=== PATIENT | female | born 1995 | race Asian ===

== ENCOUNTER 2019-08-17 07:25 | Inpatient (IN) | payer OTHER, SELFPAY ==
[2019-08-17] VITALS (55 sets, daily range): BP systolic 83–133; BP diastolic 46–117; PULSE 55–104; RESP 16–17; TEMP 36.6–37.5; O2SAT 80–100
[2019-08-17 08:37] LABS: Basophils Percent Auto 0.2 % (0.2-1.2); Eosinophils Absolute Auto 0.2 K/mm3 (0-0.3); Eosinophils Percent Auto 1.3 % (0-4.4); Hematocrit 35.5 % (37.0-47.0); Immature Granulocyte Absolute 0.15 K/mm3 (0.00-0.031); Lymphocytes Absolute Auto 2.58 K/mm3 (0.9-3.2); Mean Corpuscular Hemoglobin 26.2 pg (26-34); Mean Corpuscular Volume 84.5 fl (80-100); Mean Platelet Volume 9.9 fl (7.4-10.4); Monocytes Absolute Auto 1.2 K/mm3 (0.1-0.6); Monocytes Percent Auto 7.7 % (2.6-8.5); Neutrophils Percent Auto 72.8 % (45.5-73.1); Platelet Count Result 243 k/mm3 (150-375); Red Cell Distribution Width 13.9 % (11.5-14.5); White Blood Count 15.2 K/mm3 (4.5-10.0)
[2019-08-17] MEDS: LACTATED RINGERS 1,000 ML 125 ML IV CONT (09:28)
--- NOTE | 2019-08-17 11:11 | PM.OBPRVD ---
OB - Delivery Note Procedure Delivery date: 08/17/19 Route of delivery: Episiotomy description: None Laceration description: None Specimen: No Estimated blood loss (mL): 100 Anesthesia type: Epidural Disposition: floor Narrative: Patient prepped and draped in usual sterile manner for this procedure. Maternal expulsive efforts readily delivered vertex with suctioning of the nasal and oropharynx. With further pushing the rest of baby was readily delivered without difficulty. Cord was clamped and cut and placenta then delivered spontaneously. Cervix vagina and vulva were inspected no lacerations or tears. Immediate postop condition mother and baby were both excellent. Baby Weeks of gestation at delivery: 39 gender: Female Weight (pounds): 6 Weight (ounces): 13 presentation: vertex score one minute: 9 score five minutes: 9
--- NOTE | 2019-08-17 11:13 | P.PCNOB_ITS ---
OB - Delivery Note Procedure Laceration description: None Estimated blood loss (mL): 100 Anesthesia type: Epidural [place] Baby Weeks of gestation at delivery: 39 Infant gender: Female Weight (pounds): 6 Weight (ounces): 13 presentation: vertex score one minute: 9 score five minutes: 9
[2019-08-17] MEDS: OXYTOCIN 30 UNITS/NS 500 ML 30 UNITS/500 ML BAG 125 UNITS IV CONT (11:40)
--- NOTE | 2019-08-17 16:10 | PC.NURSE ---
Patient transferred to post room #283 via wheelchair. Support person present. Oriented to unit, room, information board, rooming in, admission packet and security measures. Patient verbalizes understanding.
--- NOTE | 2019-08-17 17:15 | LDADM ---
This patient, Diane Ibarra, was admitted to OB 2nd Floor Room 283 on 08/17/19 at 07:25. Plans for labor, pain management and were discussed with patient. Patient/family oriented to hospital policies and general routines including ID bracelet, bed and alarms, visiting hours, pain management, procedures, bathroom and other care routines, personal items, smoking policy, room service/diet and guest tray routines, infant security routines, and visiting hours. Patient/Family are encouraged to report perceived risks to care and to ask questions if they do not understand what they are told or what they should do. See OBIX for further documentation.
[2019-08-17] MEDS: IBUPROFEN 600 MG TABLET PO (19:05)
[2019-08-18 05:34] LABS: Hematocrit 33.2 % (37.0-47.0); Hemoglobin 10.1 g/dL (12.0-15.0)
--- NOTE | 2019-08-18 07:41 | P.DS_ITS ---
OB - DS: Summary OB Procedures : None OB Procedures Intrapartum: Spontaneous Vag Delivery OB Procedures: : None Time Spent with Patient Time attestation: Total time spent providing and/or coordinating discharge services: DS: Data Data Completed and Pending Labs on day of discharge: Labs from last 24 hours 08/18/19 08/17/19 08/17/19 04:58 08:31 08:31 WBC RBC Hgb 10.1 L Hct 33.2 L MCV MCH MCHC RDW Plt Count MPV Immature Gran % (Auto) Neut % (Auto) Lymph % (Auto) [place] % (Auto) Eos % (Auto) Baso % (Auto) Lymph # (Auto) [place] # (Auto) Eos # (Auto) Baso # (Auto) Abs Immat Gran (auto) Absolute Neuts (auto) Absolute Nucleated RBC Nucleated RBC % RPR Pending Blood Type O Positive Antibody Screen Negative 08/17/19 08:31 WBC 15.2 H RBC 4.20 Hgb 11.0 L Hct 35.5 L MCV 84.5 MCH 26.2 MCHC 31.0 L RDW 13.9 Plt Count 243 MPV 9.9 Immature Gran % (Auto) 1.0 H Neut % (Auto) 72.8 Lymph % (Auto) 17.[address] [place] % (Auto) 7.7 Eos % (Auto) 1.3 Baso % (Auto) 0.2 Lymph # (Auto) 2.58 [place] # (Auto) 1.2 H Eos # (Auto) 0.2 Baso # (Auto) 0.0 Abs Immat Gran (auto) 0.15 H Absolute Neuts (auto) 11.0 H Absolute Nucleated RBC 0.0 Nucleated RBC % 0.0 RPR Blood Type Antibody Screen Discharge Plan Discharge Discharging Clinician: Tyson Lopez Patient Disposition: Home, Self-Care Activity: as tolerated Diet: as tolerated Patient Instructions: Antibiotic Form Stand Alone Forms: General Discharge Information Follow-up/Referrals: Tyson Lopez MD [Physician] - 3 Weeks Discharge Medications: New hydrocodone-acetaminophen 5-325 mg Tablet 1 tab PO Q3H PRN (Reason: Moderate Pain (4-6)) Qty: 12 RF: 0 ibuprofen 600 mg Tablet 600 mg PO Q6H PRN (Reason: Cramping) Qty: 30 RF: 0 No Action PNV cmb#95-ferrous fumarate-FA [] 28 mg iron- 800 mcg Tablet 1 tablet PO DAILY RF: 0 Date of admission: 08/17/19 07:25 Primary Care Provider: KarenLucie Admitting Provider: Tyson Lopez Attending physician on admission: Tyson Lopez
[2019-08-18] MEDS: TETANUS,DIPHTHERIA,AC PERTUSSIS ADULT (0.5 ML) BOOSTRIX IM (08:11)
[2019-08-18] MEDS: MULTIVIT/MIN/PREN/FOL AC/IRON TABLET 1 TAB PO (08:11)
[2019-08-18] MEDS: IBUPROFEN 600 MG TABLET PO (08:18)
[2019-08-18 08:20] VITALS: BP 115/72; PULSE 77; RESP 16; TEMP 37; O2SAT 100
--- NOTE | 2019-08-18 11:05 | PC.NURSE ---
Consulted with patient, mother reports pain with feeding. Both nipples are reddened from incorrect latch. Nipple care reviewed. Reviewed feeding cues, frequencies, duration of feedings, feeding elimination flow sheet, and signs of adequate intake. Demonstrated stimulation techniques to wake infant for feeding. Assisted with to breast. Reviewed positioning/alignment in cross cradle, holding breast in U hold and guided asymmetrical latch on. Discussed rational for each. Infant was able to latch correctly. Mother quickly reports she can feel is latched more deeply than previous feedings. Infant nursed eagerly, with steady draws and frequent swallowing noted. Reviewed signs of a correct latch, effective nursing and suck swallow ratio. Infant was able to maintain latch without discomfort to mother. Suggested mother stimulate infant to keep awake and nursing effectively for increased intake and assist with maintaining deep latch. Demonstrated how to adjust latch more deeply while feeding. Instructed mother to call out for RN assistance if she is unable to latch for feeding or she has discomfort with nursing. Instructed feeding should be initiated three hours from start of last feeding or if feeding cues are noted before. Mother voiced understanding of information shared.
[2019-08-18 13:36] LABS: Rapid Plasma Reagin Non-Reactive (NonReactive)
--- NOTE | 2019-08-18 14:49 | WPDANLDPN2 ---
Anes-Prog Note L&D Date/Time: 08/18/19 14:49 Comfortable throughout: labor Neuraxial method: epidural Epidural/Spinal procedure site: clean & non-tender Neuro status: Neuro function grossly intact. Cardiovascular status: normal Respiratory status: normal Airway patency: baseline Mental status: baseline Post-Op hydration status: normal Vital Signs: Last Vital Signs Temp 37.0 C 08/18/19 08:20 Pulse 77 08/18/19 08:20 Resp 16 08/18/19 08:20 BP 115/72 08/18/19 08:20 Pulse Ox 100 08/18/19 08:20 I/O: Intake & Output 08/17/19 08/18/19 08/18/19 23:59 07:59 15:59 Output Total 100 Balance -100 Post-procedural complaints: none Patient feedback: Patient satisfied with anesthetic care.
[2019-08-18 21:30] VITALS: BP 107/65; PULSE 80; RESP 17; TEMP 37.1
[2019-08-19 09:25] VITALS: BP 117/74; PULSE 74; RESP 16; TEMP 36.2; O2SAT 99
[2019-08-19] MEDS: MULTIVIT/MIN/PREN/FOL AC/IRON TABLET 1 TAB PO (09:25)
[2019-08-19] MEDS: IBUPROFEN 600 MG TABLET PO (09:25)
[2019-08-19] MEDS: DOCUSATE SODIUM 100 MG CAPSULE PO (09:25)
[2019-08-21 07:56] VITALS: BP 129/63; PULSE 67; RESP 20; TEMP 37.1; O2SAT 98
--- NOTE | 2019-08-22 11:56 | PM.OBDSVD ---
OB - DS: Summary OB Procedures : None OB Procedures Intrapartum: Spontaneous Vag Delivery OB Procedures: : None Time Spent with Patient Time attestation: Total time spent providing and/or coordinating discharge services: Discharge Plan Discharge Discharging Clinician: Tyson Lopez Patient Disposition: Home, Self-Care Activity: as tolerated Diet: as tolerated Discharge Instructions: Education: Mom and Baby Guide Given to: Patient Follow-Up: Call your delivering provider's office for an appointment to be seen in: 3 weeks Mom and baby should come to the [facility] for the follow-up appointment. Appointment Date/Time: Wednesday08/21/2019 at 8:00 am Call [phone] if you are unable to keep your appointment time. BREAST CARE: 1. Wear a snug supportive bra. 2. For engorgement discomfort: Breast Feeding: A. Apply warm moist washcloths B. Express milk as needed to relieve engorgement C. Wear loose clothing 3. For sore nipples: A. Identify correct latch-on B. Apply warm moist washcloths before and after nursing C. Air dry nipples after nursing D. May apply Lansinoh cream to nipples EPISIOTOMY/PERINEAL CARE: 1. Until bleeding stops, use your robinson bottle after urinating 2. Change your pad frequently throughout the day 3. You may take sitz baths several times a day (run warm water in your bathtub for 20 minutes.) Do NOT bathe in the water 4. No tub baths until seen by your physician - You may shower ACTIVITY: 1. Rest as much as possible. 2. Do not exercise or lift anything heavier than your baby (such as laundry or other children.) 3. Avoid stairs or driving as much as possible. 4. Do not put anything into the vagina. No douching, tampons, or sexual activity until seen by physician. NOTIFY PHYSICIAN IF YOU HAVE ANY QUESTIONS OR IF ANY OF THE FOLLOWING SYMPTOMS OCCUR: 1. If your episiotomy or incision becomes red, swollen, or more painful than what you have experienced in the hospital. 2. If your vaginal bleeding becomes foul smelling. 3. If your vaginal bleeding becomes more heavy than a period or if your bleeding changes from pink to bright red. However, you may pass an occasional walnut-sized clot once or twice for the first week . 4. If you experience a sharp, shooting pain in you calves. 5. If you discover a hard, reddened area on your breast or if you experience flu-like symptoms. DIET: 1. Eat regular, well-balanced meals. 2. Drink plenty of fluids daily. If , drink to thirst. Follow-up/Referrals: Tyson Lopez MD [Physician] - 3 Weeks Discharge Medications: New hydrocodone-acetaminophen 5-325 mg Tablet 1 tab PO Q3H PRN (Reason: Moderate Pain (4-6)) Qty: 12 RF: 0 ibuprofen 600 mg Tablet 600 mg PO Q6H PRN (Reason: Cramping) Qty: 30 RF: 0 Continued PNV cmb#95-ferrous fumarate-FA [] 28 mg iron- 800 mcg Tablet 1 tablet PO DAILY RF: 0 Date of admission: 08/17/19 07:25 Primary Care Provider: StephanieLucie Admitting Provider: Tyson Lopez Discharge Date/Time: 08/19/19 12:31 Attending physician on admission: Tyson Lopez
== END 2019-08-19 12:31 | disposition home or self-care (01) | DRG 560 ==
LOC: ANHLDR 08:26 → ANHOB2 14:58
PROVIDERS: Admitting Provider Obstetrics & Gynecology; PCP Physician Assistant; Visit Provider Obstetrics & Gynecology
DX: O80 Encounter for full-term uncomplicated delivery (principal); Z37.0 Single live birth; Z3A.39 39 weeks gestation of pregnancy
CPT/HCPCS: 36415; 85014; 85018; 85025; 86592; 86850; 86900; 86901; 90715; A9270; J2590; J2795; J7120

== ENCOUNTER 2019-12-27 15:44 | Emergency (ER) | payer OTHER, SELFPAY ==
--- NOTE | ~2019-12-27 | XR_ITS ---
EXAMINATION: XR ankle LT min 3V DATE: 12/27/2019 16:06 INDICATION: Left ankle injury. TECHNIQUE: 4 views of left ankle were obtained. COMPARISON: None. FINDINGS: Bone alignment is normal. No fracture. Joint spaces are well maintained. There is lateral a nkle soft tissue swelling. IMPRESSION: 1. No fracture. Reviewed, dictated and finalized at location B. IMPRESSION: 1. No fracture.
[2019-12-27 15:56] VITALS: BP 127/84; PULSE 77; RESP 16; TEMP 36.6; O2SAT 100
--- NOTE | 2019-12-27 16:13 | ED.LOWEXIN ---
HPI - Extremity Injury (Lower) General Chief Complaint: Extremity Injury, Lower Stated Complaint: L/ankle pain Time Seen by Provider: 12/27/19 16:08 Source: patient and RN notes reviewed Mode of arrival: ambulatory Limitations: no limitations History of Present Illness HPI Narrative: Patient presents today complaining of an injury to her left ankle. States she had her baby on her lap for approximately 30 minutes. When she went to stand up her foot was asleep. She stopped it to wake it up, causing her to twist her ankle. Injury occurred approximately 1.5 hours prior to exam.Currently rates her pain 4/10 and has tried no otc interventions prior to arrival. Denies numbness or tingling in the leg or foot. Related Data Home Medications Medication Instructions Recorded Confirmed albuterol sulfate 2 puff INHALATION QID PRN 12/27/19 12/27/19 Allergies Allergy/AdvReac Type Severity Reaction Status Date / Time Sulfa (Sulfonamide Allergy Intermediate Rash Verified 12/27/19 15:57 Antibiotics) FRESH FRUITS Allergy Mild HIVES Uncoded 12/27/19 15:57 Review of Systems Review of Systems: Narrative: CONSTITUTIONAL: Denies body aches, fever, chills, or sweats. EYES: Denies visual changes, redness, or discharge. ENT: Denies rhinorrhea, congestion, sore throat, or otalgia. CARDIOVASCULAR: Denies chest pain, palpitations, or edema. RESPIRATORY: Denies cough or dyspnea. GASTROINTESTINAL: Denies abdominal pain, nausea, vomiting, or diarrhea. GENITOURINARY: Denies dysuria or hematuria. SKIN: Denies rash, itching, or wounds. MUSCULOSKELETAL: Denies back pain, or myalgia. Left ankle injury NEUROLOGIC: Denies headache, numbness, tingling, or weakness. PSYCH: Denies depression or anxiety. [facility] Family History Family History (Updated 07/28/19 @ 13:41 by Melvin Tyson RN) Mother Hypertension Social History Social History Smoking status: Never smoker Substance use: never Gender identity (if verbalized by the patient): Female Spiritual care concerns: No Comments At time of signature, I have reviewed and agree with nursing past medical, surgical, social and family history unless otherwise noted. Please see nursing chart for further information. There is no relevant family history pertinent to the presenting complaint Exam Narrative: Exam Narrative: GENERAL: Well-appearing, well-nourished, and in no acute distress. HEAD: Normocephalic, atraumatic. EYES: EOMI. No redness or drainage. Conjunctivae normal. ENT: Mucous membranes pink and moist. NECK: Normal AROM. CHEST: No respiratory distress. EXTREMITIES:Left ankle: Moderate swelling and tenderness and mild ecchymosis to the lateral ankle. No tenderness medially or posteriorly. Distal sensation intact. Capillary refill normal. Pedal pulse normal. Limited range of motion of the ankle due to pain and swelling. SKIN: Warm, dry, no rash. Capillary refill normal. Normal skin turgor. NEURO: No focal deficits. Alert and oriented x3. Gait steady. PSYCH: Normal affect. No signs of depression or anxiety. Course Vital Signs Vital signs: Vital Signs Temperature 97.8 F 12/27/19 15:56 Pulse Rate 77 12/27/19 15:56 Respiratory Rate 16 12/27/19 15:56 Blood Pressure 127/84 12/27/19 15:56 Pulse Oximetry 100 12/27/19 15:56 Temperature 97.8 F 12/27/19 15:56 Pulse Rate 77 12/27/19 15:56 Respiratory Rate 16 12/27/19 15:56 Blood Pressure 127/84 12/27/19 15:56 Pulse Oximetry 100 12/27/19 15:56 Reviewed. Pt has been instructed to follow up with her PCP regarding her elevated blood pressure today. MDM - Extremity Injury (Lower) Differential Diagnosis Differential diagnosis: Likely ankle sprain and strain and ankle fracture Imaging Data Radiologist's impression: ITS Impressions Ankle X-Ray 12/27/19 16:06 IMPRESSION: 1. No fracture. Critical Care Time Critical Care Time Critical Care Time: No Discharge Pl
== END 2019-12-27 16:28 | disposition home or self-care (01) ==
PROVIDERS: Emergency Provider Nurse Practitioner; PCP Physician Assistant
DX: S93.402A Sprain of unspecified ligament of left ankle, initial encounter (principal); X50.9XXA Other and unspecified overexertion or strenuous movements or postures, initial encounter; J45.909 Unspecified asthma, uncomplicated
CPT/HCPCS: 73610; 99213; G0463

== ENCOUNTER 2020-12-28 21:04 | Emergency (ER) | payer OTHER, SELFPAY ==
--- NOTE | ~2020-12-28 | XR_ITS ---
EXAMINATION: XR chest 2V DATE: 12/28/2020 21:25 INDICATION: Chest pain, shortness of breath and COVID exposure. TECHNIQUE: PA and lateral views of the chest were obtained. COMPARISON: Chest radiograph dated 09/06/2016 FINDINGS: Subtle nodular versus small patchy airspace opacities at the lateral right lower lung zone and in the left upper lung zone. No pulmonary edema, pleural effusion or pneumothorax. The cardiomediastinal si lhouette is normal. Visualized bones and soft tissues are unremarkable. IMPRESSION: 1. Subtle nodular/small patchy airspace opacities at the left upper and right lower lung zones which given patient age are most suspicious for pneumonia. Reviewed, dictated and finalized at location A. IMPRESSION: 1. Subtle nodular/small patchy airspace opacities at the left upper and right l ower lung zones which given patient age are most suspicious for pneumonia.
[2020-12-28 21:06] VITALS: BP 120/69; PULSE 117; RESP 20; TEMP 37.4; O2SAT 99
--- NOTE | 2020-12-28 21:09 | ECG_ITS ---
Measurements Intervals [place] Rate: 106 P: 20 ID: [id number] QRS: 57 QRSD: 79 T: 39 QT: 304 QTc: 404 Interpretive Statements SINUS TACHYCARDIA ABNORMAL ECG Electronically Signed On 12-29-2020 6:50:04 CDT by Stanley Perry D.O.
[2020-12-28 21:28] LABS: Hematocrit 41.9 % (37.0-47.0); Hemoglobin 13.9 g/dL (12.0-15.0); Mean Corpuscular HGB Conc 33.2 g/dl (32-36); Mean Corpuscular Hemoglobin 30.5 pg (26-34); Mean Corpuscular Volume 92.1 fl (80-100); Mean Platelet Volume 10.2 fl (7.4-10.4); Platelet Count Result 123 k/mm3 (150-375); Red Blood Count 4.55 M/mm3 (4.2-5.4); Red Cell Distribution Width 11.5 % (11.5-14.5); White Blood Count 4.1 K/mm3 (4.5-10.0)
[2020-12-28 21:36] LABS: Anion Gap 10 mmol/L (8-16); Blood Urea Nitrogen 6 mg/dL (7-17); Calcium 9.4 mg/dL (8.4-10.2); Carbon Dioxide 23 mmol/L (22-30); Chloride 106 mmol/L (98-107); Estimated Glomerular Filt Rate > 60; Glucose 112 mg/dL (65-110); Sodium 139 mmol/L (137-145)
[2020-12-28 21:45] VITALS: PULSE 87; RESP 16
[2020-12-28 21:49] LABS: Band Neutrophils Percent 9 % (0-6); Lymphocytes Absolute Manual 1.06 K/mm3 (1.1-4.5); Monocytes Absolute Manual 0.12 K/mm3 (0.1-0.90); Monocytes Percent Manual 3 % (3-9); Neutrophils Absolute Manual 2.91 K/mm3 (1.7-7.2); Neutrophils Percent Manual 62 % (46-73); Total Cells Counted 100
[2020-12-28 22:22] VITALS: BP 99/67; PULSE 107; RESP 21; O2SAT 100
[2020-12-28] MEDS: IPRATROPIUM BR 0.02% INH SOLN 0.5 MG/2.5 ML VIAL INHALATION (22:51)
--- NOTE | 2020-12-28 23:15 | PC.NURSE ---
Assumed care of pt at this time. Pt alert and upright on stretcher, breathing treatment in place. Updated pt on POC.
[2020-12-28 23:22] VITALS: BP 100/60; PULSE 98; RESP 23; O2SAT 99
[2020-12-28] MEDS: KETOROLAC 15 MG/ML VIAL (*BKC) IV PUSH (23:25)
[2020-12-28] MEDS: SODIUM CHLORIDE 0.9% IV 2,000 ML 999 ML IV CONT (23:25)
[2020-12-28] MEDS: ONDANSETRON INJ 4 MG/2 ML VIAL IV PUSH (23:25)
--- NOTE | 2020-12-29 00:17 | ED.SOB ---
HPI - SOB/Dyspnea General Chief Complaint: Shortness of Breath/Dyspnea Stated Complaint: short of breath, dizziness Time Seen by Provider: 12/28/20 22:39 Source: patient History of Present Illness HPI Narrative: Patient presents with sign out feeling well symptoms started last night and getting progressively worse. She reports shortness of breath diffuse chest pain and diffuse body aches. Reports subjective fevers at home. Reports her kids both tested positive for Covid but she wanted to come in for evaluation. Reports some nausea and diarrhea but no vomiting. Related Data Home Medications Medication Instructions Recorded Confirmed albuterol sulfate 2 puff INHALATION QID PRN 12/27/19 12/27/19 Allergies Allergy/AdvReac Type Severity Reaction Status Date / Time Sulfa (Sulfonamide Allergy Intermediate Rash Verified 12/28/20 23:19 Antibiotics) FRESH FRUITS Allergy Mild HIVES Uncoded 12/28/20 23:19 Review of Systems Review of Systems: CONSTITUTIONAL: Denies fever, chills, or sweats. EYES: Denies visual changes, redness, or discharge. ENT: Reports congestion CARDIOVASCULAR: Reports diffuse chest pain RESPIRATORY: Reports cough and shortness breath GASTROINTESTINAL: Reports nausea and diarrhea GENITOURINARY: Denies dysuria or hematuria. SKIN: Denies rash or itching. MUSCULOSKELETAL: Reports diffuse body aches a. NEUROLOGIC: Denies headache, numbness, dizziness, or weakness. PSYCHIATRIC: Denies anxiety or depression. [facility] Family History Family History Mother Hypertension Social History Social History Smoking status: Never smoker Substance use: never Gender identity (if verbalized by the patient): Female Spiritual care concerns: No Exam Narrative: GENERAL: Well-appearing, well-nourished, and in no acute distress. HEAD: Normocephalic, atraumatic. EYES: PERRLA and EOMI. ENT: Nares clear, no rhinorrhea or epistaxis. Mucous membranes moist. NECK: Supple. No masses. No JVD CHEST: Mild crackles noted at the bilateral bases no respiratory distress. No wheezes rales or rhonchi HEART: Regular cardia. No murmur heard. Normal peripheral pulses. ABDOMEN: Soft, nontender, nondistended, normal active bowel sounds. EXTREMITIES: Normal range of motion. No edema. SKIN: Warm, dry, no rash. NEURO: No focal deficits. Alert and oriented x3. PSYCH: Normal mood and affect. Course Reevaluation(s) Reevaluation #1: Patient reports reports feeling much improved heart rate is greatly improved Date: 12/29/20 Time: 00:07 Vital Signs Vital signs: Vital Signs Temperature 37.4 C 12/28/20 21:06 Pulse Rate 117 H 12/28/20 21:06 Respiratory Rate 20 12/28/20 21:06 Blood Pressure 120/69 12/28/20 21:06 Pulse Oximetry 99 12/28/20 21:06 Temperature 37.4 C 12/28/20 21:06 Pulse Rate 81 12/29/20 01:24 Respiratory Rate 20 12/29/20 01:24 Blood Pressure 115/79 12/29/20 01:24 Pulse Oximetry 98 12/29/20 01:24 MDM - SOB/Dyspnea MDM Narrative Medical decision making narrative: H&P as above, vs initially with tachycardia, pt looks clinically well, exam mild crackles at bilateral lung base, labs reassuring, img concerning for pneumonia, additional labs/img considered, symptomatic relief available as needed. Patient treated with Toradol, Zofran, DuoNeb therapy, fluids on reevaluation pt continues to looks clinically well vital signs improved and patient reported feeling improved. Suspect Covid infection, dns maternal pneumonia, PE severe dehydration. Given patient's improvement she is appropriate for continued supportive therapies. Patient is comfortable with the outpatient plan. Return precautions given. Lab Data Result diagrams: 12/28/20 21:20 12/28/20 21:20 Labs: Lab Results 12/28/20 12/28/20 12/29/20 Range/Units 21:20 21:20 01:28 WBC 4.1 L (4.5-10.
[2020-12-29 00:29] VITALS: BP 115/73; PULSE 103; RESP 19; O2SAT 100
[2020-12-29 01:24] VITALS: BP 115/79; PULSE 81; RESP 20; O2SAT 98
[2020-12-30 18:31] LABS: SARS-CoV-2 RNA PCR Positive
== END 2020-12-29 01:35 | disposition home or self-care (01) ==
PROVIDERS: Emergency Medicine; Emergency Provider Emergency Medicine; PCP Nurse Practitioner Family
DX: U07.1 COVID-19 (principal); J12.82 Pneumonia due to coronavirus disease 2019; R00.0 Tachycardia, unspecified
CPT/HCPCS: 36415; 71046; 80048; 85025; 93005; 96361; 96374; 96375; 99284; C9803; J1885; J2405; J7030; U0003; U0005

== ENCOUNTER 2023-03-07 09:58 | Emergency (ER) | payer OTHER, SELFPAY ==
--- NOTE | 2023-03-07 10:01 | ED.GENADULT ---
HPI - General Adult General Chief complaint: Upper Respiratory Infection Stated complaint: Cough Time Seen by Provider: 03/07/23 10:00 Source: patient Mode of arrival: ambulatory Limitations: no limitations History of Present Illness HPI narrative: 27-year-old female patient presents to urgent care with symptoms of cough that has lasted over a month. Patient had COVID in January and it took her over a week to recover. Since then she has been having a cough. patient has a history of asthma for which she is only prescribed an albuterol inhaler and has not had to use it every day. patient reports occasionally a productive cough but mostly dry cough. Patient reports last night having to vomit due to coughing. Patient denies fevers, chills, body aches. Related Data Home Medications Medication Instructions Recorded Confirmed albuterol sulfate 90 mcg/actuation 2 puff inhalation QID PRN Wheezing 12/27/19 03/07/23 aerosol inhaler levonorgestrel 21 mcg/24 hours (8 1 device intrauterine ONCE 07/08/22 03/07/23 yrs) 52 mg intrauterine device (Mirena) Allergies Allergy/AdvReac Type Severity Reaction Status Date / Time Sulfa (Sulfonamide AdvReac Mild Rash Verified 03/07/23 10:01 Antibiotics) FRESH FRUITS AdvReac Mild HIVES Uncoded 03/07/23 10:01 Review of Systems Review of Systems: CONSTITUTIONAL: Denies fever, chills, or sweats. EYES: Denies visual changes, redness, or discharge. ENT: Positive rhinorrhea, negative congestion, sore throat, or otalgia. CARDIOVASCULAR: Denies chest pain, palpitations, or edema. RESPIRATORY: positive cough and intermittent dyspnea. GASTROINTESTINAL: Denies abdominal pain, nausea, vomiting, or diarrhea. GENITOURINARY: Denies dysuria or hematuria. SKIN: Denies rash or positive generalized itching. MUSCULOSKELETAL: Denies back pain, joint pain, or myalgia. NEUROLOGIC: Denies headache, numbness, or weakness. PSYCHIATRIC: Denies anxiety or depression. [facility] Past Medical History Medical History Allergies Asthma Encounter for IUD insertion 09/25/19 Mirena insertion Encounter for screening examination for sexually transmitted disease Head injury Seizure (2009) one due to head injury Vaginal delivery 07/26/15 no complications Hai 09/29/17 no complications Alen 08/17/19 no complications Sia Surgical History Surgical History History of dilation and curettage 09/03/16 suction d&c--missed ab/POC Family History Family History Mother Hypertension Father Hyperlipidemia Social History Social History Smoking status: Never smoker Alcohol intake: never Substance use: never Substance use type: does not use Living arrangements: other Additional living arrangements comments: Occupation/Education: other Additional occupation/education comments: stay at home mom Gender identity (if verbalized by the patient): Female Sexual Orientation (if Verbalized by the Patient): Straight or Heterosexual Spiritual care concerns: No Comments At the time of my signature I agree with nursing past medical history, surgical, social, and family history. There is no relevant family history pertinent to the presenting complaint. Exam Narrative: GENERAL: Well-appearing, well-nourished, and in no acute distress. HEAD: Normocephalic, atraumatic. EYES: PERRLA and EOMI. ENT: Nares clear, no rhinorrhea or epistaxis. Mucous membranes moist. NECK: Supple. No lymphadenopathy CHEST: clear to auscultation. No respiratory distress. HEART: Regular rate and rhythm. No murmur heard. Normal peripheral pulses. ABDOMEN: Soft, nontender, nondistended, normal active bowel sounds. EXTREMITIES: Normal range of motion. No edema. SKIN: Warm, dry,
[2023-03-07 10:11] VITALS: BP 118/83; PULSE 84; RESP 16; TEMP 36.5; O2SAT 99
== END 2023-03-07 10:40 | disposition home or self-care (01) ==
PROVIDERS: Emergency Provider Nurse Practitioner Family; PCP Nurse Practitioner Family
DX: J45.901 Unspecified asthma with (acute) exacerbation (principal)
CPT/HCPCS: 99213; G0463

== ENCOUNTER 2023-07-14 10:12 | Outpatient (CLI) | payer OTHER, SELFPAY ==
[2023-07-14 11:30] LABS: Rapid Plasma Reagin Non-Reactive (NonReactive)
[2023-07-14 11:36] LABS: HIV 1/2 Ab P24 Ag Result Negative (Negative)
[2023-07-14 11:51] LABS: Hepatitis B Surface Antigen Negative (Negative)
[2023-07-14 11:57] LABS: HAV RESULT Negative (Negative); Hepatitis B Core IgM Result Negative (Negative)
[2023-07-14 12:09] LABS: Hepatitis C Virus Antibody Negative (Negative)
== END 2023-07-14 10:13 | disposition home or self-care (01) ==
LOC: ANHLAB 10:13
PROVIDERS: PCP Nurse Practitioner Family; Visit Provider Obstetrics & Gynecology
DX: Z11.3 Encounter for screening for infections with a predominantly sexual mode of transmission (principal)
CPT/HCPCS: 36415; 80074; 86592; 86695; 86696; 86703; G0432